=== PATIENT | female | born 1945 | race Caucasian/White ===

== ENCOUNTER 2018-11-18 11:25 | Outpatient (CLI) | payer OTHER | END 2018-11-18 11:27 | disposition home or self-care (01) | LOC: RAD 11:25 | DX: J44.9 Chronic obstructive pulmonary disease, unspecified (principal) ==

== ENCOUNTER 2019-02-16 12:42 | Outpatient (CLI) | payer OTHER | END 2019-02-16 12:45 | disposition home or self-care (01) | LOC: RAD 12:42 | DX: M12.89 Other specific arthropathies, not elsewhere classified, multiple sites (principal); M46.47 Discitis, unspecified, lumbosacral region ==

== ENCOUNTER 2022-11-26 11:36 | Outpatient (CLI) | payer OTHER | END 2022-11-26 11:42 | disposition home or self-care (01) | LOC: RAD 11:36 | PROVIDERS: ATTEND Ophthalmology | DX: R07.89 Other chest pain (principal) ==

== ENCOUNTER 2023-04-16 13:59 | Outpatient (CLI) | payer OTHER | END 2023-04-16 14:11 | disposition home or self-care (01) | LOC: RAD 13:59 | PROVIDERS: ATTEND Orthopaedic Surgery | DX: M25.561 Pain in right knee (principal); M25.562 Pain in left knee | CPT/HCPCS: 73721 ==

== ENCOUNTER 2023-11-10 09:07 | Emergency (ER) | payer OTHER ==
[~2023-11-10] VITALS: Ht 162.6 cm; Wt 62.6 kg
[2023-11-10] MEDS ORDERED: COZAAR100 MG PO (09:15)
[2023-11-10] MEDS ORDERED: TOPROL XL100 M1 PO (09:16)
== END 2023-11-10 12:14 | disposition home or self-care (01) ==
LOC: ER 09:08
DX: S52.021A Displaced fracture of olecranon process without intraarticular extension of right ulna, initial encounter for closed fracture (principal); W19.XXXA Unspecified fall, initial encounter; Y93.89 Activity, other specified; Y92.098 Other place in other non-institutional residence as the place of occurrence of the external cause; Y99.8 Other external cause status; I10 Essential (primary) hypertension